=== PATIENT | male | born 1970 | race Caucasian/White ===

== ENCOUNTER 2023-05-04 14:45 | Outpatient (RCR) | payer OTHER, SELFPAY | END 2023-08-28 11:22 | disposition home or self-care (01) | PROVIDERS: PCP Family Medicine; Visit Provider Family Medicine | DX: M76.61 Achilles tendinitis, right leg (principal); Z74.09 Other reduced mobility; Z51.89 Encounter for other specified aftercare | CPT/HCPCS: 97035; 97140; 97162 ==

== ENCOUNTER 2024-07-14 13:22 | Emergency (ER) | payer OTHER, SELFPAY ==
[2024-07-14 13:28] VITALS: BP 157/91; PULSE 65; RESP 20; TEMP 37.6; O2SAT 97; BMI 34.7
[2024-07-14 13:51] LABS: Appearance Urine Clear (Clear); Bilirubin Urine Negative (Negative); Blood Urine Trace-intact (Negative); Color Urine Yellow (Yellow); Glucose Urine Negative (Negative); Ketones Urine Negative (Negative); Leukocyte Esterase Urine Negative (Negative); Nitrite Urine Negative (Negative); Protein Urine Negative (Negative); Specific Gravity Urine 1.015 (1.000-1.030); Urobilinogen Urine 0.2 (0.2-1.0)
[2024-07-14 14:20] LABS: RBC Urine 0-2 (0-2); WBC Urine 0-2 (0-5)
--- NOTE | 2024-07-14 14:22 | ED.GENADULT ---
HPI - General Adult General Time Seen by Provider: 14:22 Date Seen: 07/14/24 Chief complaint: Flank Pain Stated complaint: Kidney stone Time Seen by Provider: 07/14/24 14:22 Source: patient and RN notes reviewed Mode of arrival: ambulatory Limitations: no limitations History of Present Illness HPI narrative: This 53-year-old male is coming in with left flank pain radiating to groin starting at about 6am today. No nausea or vomiting, no diarrhea, no fevers. He notes no urinary changes and no history of kidney stones. He took 2 Tylenol this am without any relief of pain. There has been no trauma. He is not aware of any family history of kidney stones. He really cannot find a position of comfort. Does not seem to be coming in waves, just seems to be there. There is no respiratory component to this, no positional or movement component to this. Patient has had a right inguinal hernia repair before, no other abdominal surgery. Related Data Home Medications ?Medication ?Instructions ?Recorded ?Confirmed No Known Home Medications 07/14/24 07/14/24 Allergies Allergy/AdvReac Type Severity Reaction Status Date / Time No Known Drug Allergies Allergy Verified 07/14/24 13:30 Review of Systems Status of ROS: Reports: 6 or more systems reviewed and unremarkable except as noted in History and below [facility] Surgical History (Updated 07/14/24 @ 16:50 by Suri Gibbs MD) H/O right inguinal hernia repair ?Z98.890 - Other specified postprocedural states (ICD-10) ?Z87.19 - Personal history of other diseases of the digestive system (ICD-10) Exam Const: Vital Signs, click to edit/add: Vital Signs - 24 hr 07/14/24 13:28 07/14/24 15:56 Temperature 99.6 F Pulse Rate [Pulse Oximeter] 65 61 Respiratory Rate 20 18 Blood Pressure [Ri ght Upper Arm] 157/91 H 139/90 H Pulse Oximetry 97 97 Oxygen Delivery Me thod Room Air Room Air This 53-year-old male is seen in exam room 3, sitting up on the edge of the bed. He is alert, interactive, no apparent distress. Lungs are clear, good air entry, no wheezing or crackles, no tachypnea, no accessory muscle use. Does have left CVA tenderness, no noted rash or skin changes. No midline tenderness of his back. CV regular rate and rhythm, no murmur, normal S1-S2, no S3-S4. Abdomen is soft, does have some deep upper lateral abdominal pain or discomfort but no rebound or guarding on evaluation. Elsewhere, no pain. He has no palpable groin mass or bulging, no reproducible tenderness. No lower extremity edema, patient is ambulatory into the ED of his own accord. Sclera clear, face atraumatic, speech normal. Documenting provider has reviewed patient's vital signs: yes Course Course ED Course: Reviewed with patient that we are going to proceed with CT imaging. Urinalysis does look reassuring but does not ultimately rule out kidney stones altogether. I agree, his pain certainly does sound like renal colic. It could be musculoskeletal, other intra-abdominal processes. Will start with noncontrast CT, can consider redoing CT imaging if we need further details. Will obtain CBC and basic metabolic panel. He states he does not need anything for pain at this time. Reevaluation(s) Time of Reevaluation #1: 16:41 Reevaluation #1: Have reviewed patient's CT results and labs with him. He has had 2 colonoscopies before, there is a family history of colon cancer and had 1 at age 39 and then 1 at age 49, he has had no polyps. He has no symptoms of biliary disease, did review biliary colic. If he has symptoms of gallstones ever, should follow up with General surgery. Otherwise, discussed constipation. He does drink adequate fluids but will give him information on fiber has well. Will have him try some MiraLax to start clearing out his bowel. Symptoms are likely from constipation. Vital Signs Vital signs: Initial Vital Signs Temperature 99.6 F 07/14/24 13:28 Temperature Source Temporal Artery Scan 07/14/24 13:28 Pulse Rate 65 07/14/24 13:28 Pulse Rhythm Regular 07/14/24 13:28 Respiratory Rate 20 07/14/24 13:28 Blood Pressure 157/91 H 07/14/24 13:28 Blood Pressure Mean 113 H 07/14/24 13:28 Blood Pressure Position Sitting 07/14/24 13:28 Pulse Oximetry 97 07/14/24 13:28 Oxygen Delivery Method Room Air 07/14/24 13:28 Vital Signs Temperature 99.6 F 07/14/24 13:28 Pulse Rate 65 07/14/24 13:28 Respiratory Rate 20 07/14/24 13:28 Blood Pressure 157/91 H 07/14/24 13:28 Pulse Oximetry 97 07/14/24 13:28 Oxygen Delivery Method Room Air 07/14/24 13:28 Temperature 99.6 F 07/14/24 13:28 Pulse Rate 61 07/14/24 15:56 Respiratory Rate 18 07/14/24 15:56 Blood Pressure 139/90 H 07/14/24 15:56 Pulse Oximetry 97 07/14/24 15:56 Oxygen Delivery Method Room Air 07/14/24 15:56 Medical Decision Making Lab Data Lab results reviewed: Yes I reviewed the patient's lab results Labs: Lab Results 07/14/24 07/14/24 07/14/24 Range/Units 14:53 15:06 Unknown WBC 9.24 (4.50-11.00) K/uL RBC 4.71 (4.30-5.90) m/uL Hgb 14.7 (13.5-17.5) gm/dL Hct 43.4 (37.0-53.0) % MCV 92 (80-100) fL MCH 31 (26-34) pg MCHC 34 (32-36) gm/dL RDW Coeff of Sanaz 11.7 (11.5-15.5) % Plt Count 213 (140-440) K/uL Neut % (Auto) 65.3 (42.0-72.0) % Lymph % (Auto) 27.3 (20-44) % [place] % (Auto) 7.1 (0.0-11.0) % Eos % (Auto) 0.0 (0.0-7.0) % Baso % (Auto) 0.1 (0.0-3.0) % Neut # (Auto) 6.03 (1.7-7.0) K/uL Lymph # (Auto) 2.52 (0.90-2.90) K/uL [place] # (Auto) 0.70 (0.00-0.90) K/UL Eos # (Auto) 0.00 (0.00-0.50) K/uL Baso # (Auto) 0.01 (0.00-0.30) K/uL Abs Immat Gran (auto) 0.02 (0.00-0.30) K/uL Imm/Tot Granulo (auto) 0.2 % Sodium 137 (135-149) mmol/L Potassium 4.5 (3.6-5.1) mmol/L Chloride 101 (96-114) mmol/L Carbon Dioxide 28 (20-32) mmol/L Anion Gap 8 (7-15) mEq/L BUN 21 (7-30) mg/dL Creatinine 1.1 (0.5-1.5) mg/dL Estimated Creat Clear 99.25 Estimated GFR 80 ml/min Glucose 106 (60-115) mg/dL Calcium 9.8 (8.4-10.6) mg/dL Total Bilirubin 0.5 (0.1-1.5) mg/dL Direct Bilirubin 0.2 (0.0-0.5) mg/dL AST 24 (12-35) U/L ALT 20 (4-50) U/L Alkaline Phosphatase 72 (40-150) U/L Total Protein 7.8 (6.0-8.3) g/dL Albumin 4.8 (3.3-5.0) g/dL Urine Color Yellow (Yellow) Urine Appearance Clear (Clear) Urine pH 6.0 (5.0-8.5) Ur Specific [place] 1.015 (1.000-1.030) Urine Protein Negative (Negative) Urine Glucose (UA) Negative (Negative) Urine Ketones Negative (Negative) Urine Blood Trace-intact A (Negative) Urine Nitrite Negative (Negative) Urine Bilirubin Negative (Negative) Urine Urobilinogen 0.2 (0.2-1.0) Ur Leukocyte Esterase Negative (Negative) Urine RBC 0-2 (0-2) Urine WBC 0-2 (0-5) Ur Squamous Epith Cells None (None-Few) Urine Bacteria None (None) Lab Acknowledgement Test Added Imaging Data CT scan - abdomen: Attestation: I have reviewed the pertinent imaging results. Radiologist's impression: Patient: NAYELI CHAVEZ Facility:?[facility] Patient ID:?[id number] Site Patient ID:?[id number]. Site :?1970 Study:?CT-Abdomen/Pelvis STONE STUDY-07/14/2024 2:48:14 PM Ordering Physician:?Armandoon Suri Final Report: INDICATION: Left flank pain TECHNIQUE: Axial images were obtained from the diaphragm to the pubic symphysis. Reformats were obtained in the coronal and sagittal plane. IV Contrast: None Oral Contrast: None COMPARISON: None. FINDINGS: Lower chest: Minimal discoid atelectasis right middle lobe. Liver: Unremarkable. Normal in size and attenuation. No masses. Gallbladder and bile ducts: Cholelithiasis without pericholecystic inflammation. Spleen: Unremarkable. Normal in size without mass. Pancreas: Unremarkable. No mass or inflammation. Adrenal glands: Unremarkable. No nodules. Kidneys: Unremarkable. No masses, stones, or hydronephrosis. Vasculature: Unremarkable. GI tract: The stomach is unremarkable. No dilated loops of large or small intestine. Normal appendix. Large amount of stool within the colon. Pelvis: Status post right inguinal hernia repair. Bones: Unremarkable for age. IMPRESSION: 1. No nephrolithiasis or hydronephrosis. 2. No dilated bowel or localized inflammation. Large amount of stool within the colon noted. 3. Cholelithiasis without CT evidence of cholecystitis. Please note that all CT scans at this facility use dose modulation, iterative reconstruction, and/or weight-based dosing when appropriate to reduce radiation dose to as low as reasonably achievable. Dictated by Phillip Lyles MD @ 07/14/2024 2:58:12 PM (Electronic Signature) Discharge Plan Discharge Clinical Impression: Left lateral abdominal pain Cholelithiasis Qualifiers: Cholelithiasis location: gallbladder Cholecystitis presence: without cholecystitis Biliary obstruction: without biliary obstruction Qualified Code(s): K80.20 - Calculus of gallbladder without cholecystitis without obstruction Patient Disposition: Home, Self-Care Condition: Stable Instructions: Constipation (ED), Gallstones (ED), High Fiber Diet (ED) Additional Instructions: You do have stool buildup in the colon which is likely the cause of your left-sided abdominal pain. profile saw setup operator MiraLax, take 17 g daily to try to clear some of this stool out. If you start having loose stools or diarrhea, can back off the dosing to half capsule daily or even every other day. Your goal is to have a soft but formed bowel movement daily. Bowel pain can be significant, certainly can use some Tylenol or ibuprofen, warm showers or tub, heating pad; all these things can help with pain from bowel cramping or spasms. I do not believe that you are symptomatic from your gallstones, have provided a handout for review. If you should become symptomatic, will likely need to see a general surgeon to discuss having your gallbladder removed. Activity Level: Activity as Tolerated Discharge Diet: High Fiber Prescriptions: No Action No Known Home Medications Follow Up/Referrals: Javier Bettencourt MD [Primary Care Provider] - Stand Alone Forms: ExactCost Info Instructions
--- OUTSIDE RECORDS SUMMARY | 2024-07-14 15:03 | XMS_ITS | Clinical Summary ---
Author Organization [facility] Address [place], [place] [address] Care Team Providers Care A P Mechanic Name Role Phone VotelJavier MD Primary Care Provider + Allergies No known active allergies Medications HYDROcodone-ac etaminophen (7.5-325 mg/tablet)Seble cations:Strain of lumbar region, initial encounter Take 1 Tablet by mouth every 4 hours if needed for Pain. Max acetaminophen dose: 4000mg in 24 hrs. 40 Tablet 4 Active naproxen (NAPROSYN) 500 mg tabletIndicati ons:Achilles tendinitis of right lower extremity Take 1 Tablet (500 mg) by mouth two times daily with meals. 50 Tablet 1 4 Active cyclobenzaprin e (FLEXERIL) 10 mg tabletIndicati ons:Spasm of back muscles Take 1 Tablet (10 mg) by mouth 3 times daily if needed for Muscle Spasm. 30 Tablet 5 4 Active Active Problems Problem Noted Date Diagnosed Date Routine general medical exam ination at a health care facility 07/07/2011 Family history of colon cancer 07/07/2011 Overview (01/31/2021): [facility] Colon Cancer: S/P colonoscopy 08/11/2011 Recheck 5 yrs: BN appearing Polyp Colonoscopy 01/2021 normal, repeat in 5 years Encounters Date Type Department Care Team Description 07/14/2024 Nurse Triage [facility] [address] [place] [address] VotelJavier MD Flank Pain from Last 3 Months Immunizations Name Administration Dates Next Due AMB Influenza, IIV4 PF (=>6 mos Flulaval,Fluzone Fluarix)(Flu Clinic Only) 03/27/2018 COVID-19 vaccine (Pfizer-Bio NTech 30mcg/0.3mL) 12YO+ BIVALENT PF, MDV 03/31/2022 COVID-19 vaccine (Pfizer-Bio NTech 30mcg/0.3mL) 12YO+ RUBÉN-SUCROSE PF, MDV 09/28/2021 COVID-19 vaccine (Pfizer-Bio NTech 30mcg/0.3mL) PF, MDV 04/09/2021,09/24/2020,09/03/2020 Influenza, IIV3 (Age 6-35 mos) 04/10/2009 Influenza, IIV3 (Age >=3 years) 04/01/2011 Influenza, IIV4 03/17/2023,,03/06/2021,04/16/20 17,04/14/2016 Influenza, IIV4 (=>6mos) MDV 03/17/2020,03/25/20 19 Td (Age >=7 Years) 06/01/1995 Tdap 11/25/2023,09/12/2013,09/03/2009 Zoster (Shingrix-RZV, recombinant) 03/06/2021, Family History Medical History Relation Name Comments Cancer-breast Mother Layla Cancer-colon Mother Layla age 80. Anesthesia Problem No Family History Blood Disease No Family History Relation Name Status Comments Brother Salo Alive Father Richard (Age 79) Mother Layla Sister Merary Alive Social History Tobacco Use Types Packs/Day Years Used Date Smoking Tobacco: Never Smokeless Tobacco: Never Tobacco Cessation:Counseling Given: Yes Alcohol Use Standard Drinks/Week Comments Yes 0 (1 standard drink = 0.6 oz pur e alcohol) occasional PHQ-2 Answer Date Recorded PHQ-2 TOTAL SCORE 0 11/25/2023 Social Connections Answer Date Recorded Do you often feel lonely or isolated from those around you? 0 11/24/2023 Financial Resource Strain Answer Date R ecorded Difficulty of Paying Living Expenses 3 11/24/2023 Difficulty of Paying Living Expenses Not on file 11/24/2023 Food Insecurity Answer Date Recorded Do you worry your food will run out before you are able to buy more? 1 11/24/2023 Transportation Needs Answer Date Record ed Does lack of transportation keep you from medica l appointments? 1 11/24/2023 Does lack of transportation keep you from work, meetings or getting things that you need? 1 11/24/2023 Housing Stability Answer Date Recorded What is your housing situation today? 1 11/24/2023 Utilities Answer Date Recorded Do you have trouble paying f or utilities (for example, heat, electricity, water, phone)? 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 Not on file Not on file Not on monserrat e Obstetrics History Last Filed Vital Signs Vital Sign Reading Time Taken Comments Blood Pressure 138/84 11/25/2023 3:18 PM CDT Pulse 77 11/25/2023 3:18 PM CDT Temperature 37.2 C (99 F) 11/25/2023 3:18 PM CDT Respiratory Rate 18 08/09/2014 9:28 AM CDT Oxygen Saturation 95% 11/25/2023 3:18 PM CDT Inhaled Oxygen Concentration - - Weight 146.6 kg (323 lb 1.6 oz) 11/25/2023 3:18 PM CDT Height 199.5 cm (6' 6.54) 11/25/2023 3:18 PM CD T Body Mass Index 36.82 11/25/2023 3:18 PM CDT Plan of Treatment Health Maintenance Due Date Last Done Comments HIV for age 15-65 1984 Hepatitis C screening for ag e 18-79 08/03/1987 Pneumococcal series for age 50+ (1 of 1 - PCV) 08/03/2019 COVID-19 vaccine series ( - 2023- season) 2024 03/31/2022, 09/28/2021, 04/09/2021, Additional history exists Influenza for age 50-64 01/31/2024 03/17/20 23, 02/24/2022, 03/06/2021, Additional history exists BMI (ht and wt on same day) for age 18+ 11/24/2024 11/25/2023, 04/22/2023, 04/01/2023, Additional history exists Depression screening for age 12+ 11/24/2024 11/25/2023, 03/04/2023, 02/24/2022, Additional history exists Colonoscopy through age 75 01/31/202601/31, 01/31/2021, 01/31/2021, Additional history exists Lipids for age 45-75 11/24/2028 11/25/2023, 01/03/2021, 07/03/2011 Tetanus booster 11/24/2033 11/25/2023, 08/30, 09/03/2009, Additional history exists Zoster (shingles) series for age 50+ Completed 03/06/2021, 01/03/2021 Tdap Completed 11/25/2023, 08/30, 09/03/2009 Procedures Procedure Name Priority Date/Time Associated Diagnosis Comments LIPID PANEL W REFLEX MEASURED LDL Routine 11/25/2023 4:15 PM CDT Routine general medical examination at a health care facility COLONOSCOPY SCREENING Routine 01/31/2021 10:17 AM CDT Screening for colon cancer from Last 3 Months or Most Recently Relevant to Health Maintenance Results * (ABNORMAL) LIPID PANEL W REFLEX MEASURED LDL (11/25/2023 4:15 PM CDT) CHOLESTEROL,TOTAL 172 100 - 199 mg/dL 11/26/2023 4:23 PM CDT [facility] Comment: Cholesterol, Total Reference Ranges Desirable <200 mg/dL Borderline 200-239 mg/dL High >=240 mg/dL TRIGLYCERIDES 204(H) <150 mg/dL 11/26/2023 4:23 PM CDT [facility] HDL CHOLESTEROL 32(L) >40 mg/dL 4:23 PM CDT [facility] NON-HDL CHOLESTEROL 140 <145 mg/dl 11/26/2023 4:23 PM CDT [facility] CHOL/HDL RATIO 5.38(H) <4.50 11/26/2023 4:23 PM CDT [facility] LDL CHOLESTEROL 99 <=130 mg/dL 11/26/2023 4:23 PM CDT [facility] VLDL CHOLESTEROL 41(H) <=30 mg/dL 11/26/2023 4:23 PM CDT [facility] PROVIDER ORDERED STATUS RANDOM 11/26/2023 4:23 PM CDT [facility] Blood BLOOD SPECIMEN / Unknown Butterfly / Unknown 11/25/2023 4:15 PM CDT 11/25/2023 4:17 PM CDT Javier Bettencourt MD CHEMISTRY Final Re sult [facility] [address] [place] [address], [place] * COLONOSCOPY (01/31/2021 9:59 AM CDT) 01/31/2021 9:59 AM CDT Narrative Transcriptions Holland Velásquez MD - 01/31/2021 11:09 AM CDT Patient Name: Jaxon Hill Procedure Date: 01/31/2021 Gender: Male Date of : 1970 Admit Type: Outpatient Procedure: Colonoscopy Proceduralist: Holland Velásquez MD , Myriam Campos, RN(Nurse) Referring MD: Javier Bettencourt Indications/Pre-Op Diagnosis: Screening in patient at increased risk:Family history of 1st-degree relative withcolorectal cancer before age 60 years, Lastcolonoscopy: July 2011 Medications: Fentanyl 100 micrograms IV, Midazolam 4 mgIV, The level of sedation administered wasmoderate Procedure Description: The patient had risks, benefits and alternatives explained to andgave informed consent. The patient had a stable cardiopulmonary status and judged an adequate candidate for conscious sedation. The Colon CF-H180AL [id number] was passed through the anus and advancedto the cecum, identified by appendiceal orifice and ileocecal valve. The colonoscopy was performed without difficulty. The patient toleratedthe procedure well. The quality of the bowel preparation was good. The ileocecal valve, appendiceal orifice, and rectum were photographed. Complications: No immediate complications. Estimated Blood Loss & Specimen: Estimated blood loss: none. Specimen collected - None Findings: The perianal and digital rectal examinations were normal. The entire examined colon appeared normal on direct and retroflexion views. Impressions/Post-Op Diagnosis: - The entire examined colon is normal on direct and retroflexionviews. - No specimens collected. Recommendation: - Patient has a contact number available for emergencies. The signsand symptoms of potential delayed complications were discussed with the patient. Return to normal activities tomorrow. Written discharge instructions were provided to the patient. - Resume previous diet. - Continue present medications. - Repeat colonoscopy in 5 years for screening purposes. Moderate Sedation: Moderate (conscious) sedation was administered by the endoscopy nurse and supervised by the endoscopist. The following parameters were monitored: oxygen saturation, heart rate, respiratory rate, blood pressure, adequacy of pulmonary ventilation and reponse to care. Please refer to the patient's medical record flowsheets and nursing notes for moderate sedation details. Total physician intraservice time was 13 minutes. Holland Velásquez MD 01/31/2021 11:09:30 AM This report has been signed electronically. Note Initiated On: 01/31/2021 9:59 AM Procedure Code(s): --- Professional --- 19804, Colonoscopy, flexible; diagnostic, including collection of specimen(s) bybrushing or washing, when performed (separateprocedure) Diagnosis Code(s): --- Professional --- Z80.0, Family history of malignant neoplasmof digestive organs CPT copyright 2020 [employer]. All rights reserved. The codes documented in this report are preliminary and upon professor of historical theology reviewmay be revised to meet current compliance requirements. Scope In: 10:50:39 AM Scope Withdrawal Time 0 hours 6 minutes 7 seconds Scope Out: 11:01:41 AM us Holland Velásquez MD PROCEDURE ORD Final Res ult from Last 3 Months or Most Recently Relevant to Health Maintenance Insurance [facility] [employer] Care Teams A P Mechanic Relationship Specialty Start Date End Date Votel, Javier Soto MD [address] [place] [address] PCP - General Family Practice 08/24/17
[2024-07-14 15:11] LABS: Basophils Absolute Auto 0.01 K/uL (0.00-0.30); Basophils Percent Auto 0.1 % (0.0-3.0); Hematocrit 43.4 % (37.0-53.0); Hemoglobin* 14.7 gm/dL (13.5-17.5); Immature Granulocytes Abs Auto 0.02 K/uL (0.00-0.30); Immature Granulocytes Pct Auto 0.2 %; Lymphocytes Absolute Auto 2.52 K/uL (0.90-2.90); Lymphocytes Percent Auto 27.3 % (20-44); Mean Corpuscular HGB Conc 34 gm/dL (32-36); Mean Corpuscular Hemoglobin 31 pg (26-34); Mean Corpuscular Volume 92 fL (80-100); Monocytes Percent Auto 7.1 % (0.0-11.0); Neutrophils Absolute Auto 6.03 K/uL (1.7-7.0); Neutrophils Percent Auto 65.3 % (42.0-72.0); Platelet Count* 213 K/uL (140-440); RDW Coefficient of Variation % 11.7 % (11.5-15.5); Red Blood Count 4.71 m/uL (4.30-5.90); White Blood Count* 9.24 K/uL (4.50-11.00)
[2024-07-14 15:18] LABS: Slide Review Reflex No
[2024-07-14 15:39] LABS: Albumin* 4.8 g/dL (3.3-5.0)
[2024-07-14 15:42] LABS: Anion Gap 8 mEq/L (7-15); Aspartate Amino Transferase* 24 U/L (12-35); Bilirubin Direct* 0.2 mg/dL (0.0-0.5); Bilirubin Total* 0.5 mg/dL (0.1-1.5); Blood Urea Nitrogen* 21 mg/dL (7-30); Creatinine* 1.1 mg/dL (0.5-1.5); Est. Creatinine Clearance* 99.25; Estimated Glomerular Filt Rate 80 ml/min; Total Protein* 7.8 g/dL (6.0-8.3)
[2024-07-14 15:43] LABS: Alanine Aminotransferase* 20 U/L (4-50); Alkaline Phosphatase* 72 U/L (40-150); Glucose* 106 mg/dL (60-115)
[2024-07-14 15:50] LABS: Calcium* 9.8 mg/dL (8.4-10.6); Carbon Dioxide* 28 mmol/L (20-32); Chloride* 101 mmol/L (96-114); Potassium* 4.5 mmol/L (3.6-5.1); Sodium* 137 mmol/L (135-149)
[2024-07-14 15:56] VITALS: BP 139/90; PULSE 61; RESP 18; O2SAT 97
== END 2024-07-14 16:58 | disposition home or self-care (01) ==
PROVIDERS: Emergency Provider Family Medicine; PCP Family Medicine
DX: K80.20 Calculus of gallbladder without cholecystitis without obstruction (principal); R10.32 Left lower quadrant pain
CPT/HCPCS: 36415; 74176; 80048; 80076; 81001; 81003; 85025; 99284